=== PATIENT | female | born 1975 | race Caucasian/White ===

== ENCOUNTER → 2020-06-16 | Outpatient (CLI) | payer OTHER | LOC: LAB 12:00 | PROVIDERS: ATTEND Nurse Practitioner | DX: R05 Cough (principal); R53.83 Other fatigue; Z20.822 Contact with and (suspected) exposure to COVID-19 ==

== ENCOUNTER → 2021-04-14 | Outpatient (CLI) | payer OTHER | LOC: RAD 12:28 | PROVIDERS: ATTEND Nurse Practitioner | DX: M79.672 Pain in left foot (principal); G89.29 Other chronic pain ==